=== PATIENT | female | born 1995 | race Caucasian/White ===

== ENCOUNTER 2023-02-09 20:00 | Emergency (ER) | payer BC, SELFPAY ==
--- NOTE | ~2023-02-09 | XR_ITS ---
EXAM: XR ankle LT min 3V DATE: 02/09/2023 20:56 HISTORY: pain, injury TO LATERAL AND MEDIAL ANKLE . COMPARISON: None available. FINDINGS: Normal mineralization. No fracture or dislocation. No lytic or blastic lesion. Joint space s are maintained. No erosion or periosteal change. Soft tissues within normal limits. IMPRESSION: No acute osseous finding in the left ankle. Reviewed, dictated and finalized at location K.
[2023-02-09 20:28] VITALS: BP 141/76; PULSE 94; RESP 18; TEMP 36.4; O2SAT 98
--- NOTE | 2023-02-09 21:32 | ED.GENADULT ---
HPI - General Adult General Chief complaint: Extremity Injury, Lower Stated complaint: L ankle pain Time Seen by Provider: 02/09/23 21:13 History of Present Illness HPI narrative: 27-year-old female presented to the emergency department for evaluation after having a ground-level fall off of her porch. Patient reports she missed the last step and fell. Patient denies striking head denies loss of consciousness. Patient was complaining of left ankle and left hip pain. Patient does not feel that she significantly injured her left hip but did feel a pop in her left ankle. Related Data Home Medications Medication Instructions Recorded Confirmed escitalopram oxalate 10 mg tablet mg 02/09/23 Allergies Allergy/AdvReac Type Severity Reaction Status Date / Time No Known Allergies Allergy Verified 02/09/23 20:32 Review of Systems Review of Systems: All systems reviewed & are unremarkable except as noted in HPI and below PMFSH Family History Family History (Updated 04/03/17 @ 16:08 by DOCTOR UNKNOWN) Grandparent Family history of type 2 diabetes mellitus Social History Social History Smoking status: Light tobacco smoker Alcohol intake: current Exam Narrative: APPEARANCE: Well appearing, no pain, no distress, well-nourished. HEAD: normocephalic, atraumatic. EYES: PERRLA/EOMI, conjunctivae clear. NOSE: Normal no drainage NECK: Supple. No adenopathy, no masses. RESPIRATORY: Airway patent, respirations nonlabored. Clear to auscultation bilaterally, no rales, rhonchi, wheezing. CARDIOVASCULAR: Regular rate and rhythm without murmurs rubs or gallops. ABDOMINAL: Soft, nontender, nondistended, normal bowel sounds MUSCULOSKELETAL: Left ankle tenderness to palpation NEURO: Alert. Cranial nerves II through XII intact. Grossly intact SKIN: Warm, dry. Normal Color Course Course Emergency Course: 27-year-old female presented the emergency department for evaluation of left ankle pain. X-ray showed no acute fracture or dislocation. Patient and family updated the results of the work-up including the x-ray. Patient was provided Genaro wrap and crutches for support limited weightbearing. Patient was encouraged of close follow-up with her primary care physician. Vital Signs Vital signs: Vital Signs Temperature 97.6 F 02/09/23 20:28 Pulse Rate 94 02/09/23 20:28 Respiratory Rate 18 02/09/23 20:28 Blood Pressure 141/76 H 02/09/23 20:28 Pulse Oximetry 98 02/09/23 20:28 Oxygen Delivery Room Air 02/09/23 20:28 Temperature 97.6 F 02/09/23 20:28 Pulse Rate 94 02/09/23 20:28 Respiratory Rate 18 02/09/23 20:28 Blood Pressure 141/76 H 02/09/23 20:28 Pulse Oximetry 98 02/09/23 20:28 Oxygen Delivery Room Air 02/09/23 20:28 Medical Decision Making Differential Diagnosis Differential Diagnosis: Ankle sprain, ankle fracture, foot fracture Vital Signs Vital Signs: Vital Signs Temperature 97.6 F 02/09/23 20:28 Pulse Rate 94 02/09/23 20:28 Respiratory Rate 18 02/09/23 20:28 Blood Pressure 141/76 H 02/09/23 20:28 Pulse Oximetry 98 02/09/23 20:28 Oxygen Delivery Room Air 02/09/23 20:28 Temperature 97.6 F 02/09/23 20:28 Pulse Rate 94 02/09/23 20:28 Respiratory Rate 18 02/09/23 20:28 Blood Pressure 141/76 H 02/09/23 20:28 Pulse Oximetry 98 02/09/23 20:28 Oxygen Delivery Room Air 02/09/23 20:28 Imaging Data Radiologist's impression: Impressions Ankle X-Ray 02/09/23 21:01 IMPRESSION: No acute osseous finding in the left ankle. Discharge Plan Discharge Clinical Impression: Ankle sprain and strain Patient Disposition: Home, Self-Care Condition: Stable Instructions: Antibiotic Form, Ankle Sprain (ED), Crutch Instructions (ED) Additional Instructions: Tylenol and ibuprofen for pain control, Genaro wrap for increased support, crutches for limited weightbearing. Have close follow-up with your primary
== END 2023-02-09 21:50 | disposition home or self-care (01) ==
PROVIDERS: Emergency Provider Emergency Medicine
DX: S93.402A Sprain of unspecified ligament of left ankle, initial encounter (principal); S96.912A Strain of unspecified muscle and tendon at ankle and foot level, left foot, initial encounter; W10.9XXA Fall (on) (from) unspecified stairs and steps, initial encounter
CPT/HCPCS: 73610; 99283